=== PATIENT | female | born 1975 | race Caucasian/White ===

== ENCOUNTER → 2016-08-08 | Outpatient (CLI) | payer OTHER ==
--- NOTE | 2016-08-09 15:30 | DI ---
Indication: ITS.REASON: E05.90 Thyrotoxicosis, unspecified without thyrotoxic crisis or s PROCEDURE: NM THYROID UPTAKE SCAN: Encounter: Initial Comparison: None Technique: 208 uCi of I-123 in capsule form was consumed orally without complication on August 08, 2016. The patient returned 24 hours later for thyroid uptake measurement. 11 mCi of Tc-99m pertechnetate was administered intravenously on August 09, 2016. Anterior pinhole collimator imaging was performed. FINDINGS: The thyroid uptake was normal with a value of 24.5%. The thyroid images show mild heterogeneity with hot nodules seen in the upper pole on the right and lower pole on the left. No cold nodules. IMPRESSION: 1. Thyroid uptake of 24.5% which is normal. Right upper and left lower pole hot nodules. 2. The patient will followup with her referring physician for further monitoring and treatment. .
== END ==
LOC: IMA 14:14
PROVIDERS: ATTEND Internal Medicine Endocrinology, Diabetes & Metabolism
DX: E05.90 Thyrotoxicosis, unspecified without thyrotoxic crisis or storm (principal); E04.2 Nontoxic multinodular goiter